=== PATIENT | female | born 1955 | race Caucasian/White ===

== ENCOUNTER 2017-06-21 19:29 | Emergency (ER) | payer MEDICARE, MEDICAID ==
[2017-06-21] MEDS ORDERED: SODIUM CHLORIDE 0.9% 1000ML 1,000 ML IVS ONE (19:53)
[2017-06-21] MEDS ORDERED: PROMETHAZINE HCL INJ 25 MG in SODIUM CHLORIDE 0.9% 50ML 50 ML IVPB ONE (19:53)
[2017-06-21] MEDS ORDERED: PROMETHAZINE HCL INJ 25 MG/ML VIAL ONE (19:56)
[2017-06-21] MEDS ORDERED: SODIUM CHLORIDE 0.9% 50ML 50 ML ONE (19:56)
[2017-06-21] MEDS ORDERED: ACETAMINOPHEN 325 MG TAB PO ONE (20:37)
[2017-06-21] MEDS ORDERED: ALUMINUM & MAGNESIUM HYDROXIDE 30 ML UD PO ONE (20:37)
--- NOTE | 2017-06-21 20:42 | RAD ---
EXAM DESCRIPTION: Abdomen Series CLINICAL HISTORY: n/v/gonzalez/fever COMPARISON: None FINDINGS: Four images of the chest and abdomen were submitted. The lungs are clear. Cardiac silhouette is normal. There is no free air in the abdomen. There is no evidence of bowel obstruction. Moderate stool is in the colon. IMPRESSION: Moderate stool. Electronically signed by: Marco Bass 06/21/2017 8:41 PM NETWORK ARCHITECT MANAGER
[2017-06-21] MEDS ORDERED: POTASSIUM CHLORIDE INJ 40 MEQ 40 MEQ in SODIUM CHLORIDE 0.9% 250ML 250 ML IVPB ONE (21:10)
[2017-06-21] MEDS ORDERED: ASPIRIN TABLET 325 MG TAB PO ONE (21:38)
[2017-06-21] MEDS ORDERED: MAGNESIUM SULFATE PREMIX 2GM 2 GM in PREMIX BAG 1 BAG IVPB ONE (21:41)
[2017-06-21] MEDS ORDERED: MAGNESIUM SULFATE PREMIX 2GM 50 ML IVPB ONE (21:43)
[2017-06-21] MEDS ORDERED: MORPHINE SULFATE INJ 10 MG/ML VIAL IV ONE (21:48)
[2017-06-21] MEDS ORDERED: SODIUM CHLORIDE 0.9% 10 ML VIAL ONE (21:49)
[2017-06-21] MEDS ORDERED: PIPERACILLIN/TAZOBACTAM 3.375 GM in SODIUM CHLORIDE 0.9% 100ML 100 ML IVPB ONE (21:50)
[2017-06-21] MEDS ORDERED: PIPERACILLIN/TAZOBACTAM 3.375 GM VIAL IVPB ONE (22:16)
[2017-06-21] MEDS ORDERED: SODIUM CHLORIDE 0.9% 100ML 100 ML IVPB ONE (22:16)
[2017-06-21] MEDS ORDERED: POTASSIUM CHLORIDE 40mEq 20ML VIAL ONE (22:16)
[2017-06-21] MEDS ORDERED: SODIUM CHLORIDE 0.9% 250ML 250 ML ONE (22:16)
[2017-06-21 22:23] VITALS: O2SAT 94
--- NOTE | 2017-06-21 22:32 | ED.PDOC ---
History of Present Illness - General Chief Complaint: Headache Stated Complaint: lingering SIEGEL, n/v Time Seen by Provider: 06/21/17 19:38 Source: patient Exam Limitations: no limitations - History of Present Illness Initial Comments: the patient's a 61-year-old female presenting to the emergency room secondary to 4 days of a headache, 2 days of nausea and vomiting, and chest pain that lasted a couple of hours approximately 3 days ago. She is found to be febrile here today. Apparently the headaches are frequent occurrence secondary to chronic neck problems. She reports that she believes she had a head CT at [place] in February when she was sick there. She is unsure of the results. The patient is having some moderate epigastric discomfort. No chest pain currently. No shortness of breath. The chest pain that she had 3 days ago lasted 1-2 hours and did radiate to the jaw. It also radiated to between her shoulder blades. She has had this pain before in the past over the last year with varied activities. The patient had a cholecystectomy 3 years ago and at that time according to our records she had a dilated biliary tree from an uncertain cause. There was apparently no hepatitis at that time. Also for her past medical history the patient was in the [facility] for a few weeks back in February of this year for bilateral pneumonia with pulmonary embolus and renal failure. Other past medical history includes type 2 diabetes, hypertension, hypothyroidism, depression, reflux, hypercholesterolemia, cholecystectomy, 2 feet surgeries, tubal ligation and hysterectomy, 3 ear surgeries and several sinus surgeries. She also apparently has long-standing mild hypokalemia and mild hypomagnesemia. The patient has apparently seen Dr. Osborn at [place] before. She has also seen the oil well pumper at [place] before. The patient is not having any altered mental status. No syncope or near syncope. No pain over the temporal arteries. The patient also does report that she had one episode of throwing up a little bit of blood a couple of weeks ago. Timing/Duration: unsure Severity: moderate Improving Factors: nothing Worsening Factors: nothing Associated Symptoms: chest pain, diaphoresis, fever/chills, headaches, loss of appetite, malaise, nausea/vomiting, weakness Allergies/Adverse Reactions: Allergies NO KNOWN ALLERGY Allergy (Verified 06/21/17 19:50) Home Medications: Ambulatory Orders Atenolol 25 mg PO DAILY #0 03/24/13 HYDROcodone 10MG/APAP 325MG [[place] 10/325] 1 ea PO Q4-6H PRN #0 03/24/13 Levothyroxine Sodium [Synthroid] 0.125 mg PO 0700 #0 03/24/13 Lisinopril/Hctz 20-25 mg [Zestoretic 20-25 mg] 1 ea PO DAILY #0 03/24/13 Metformin HCl 500 mg PO BID #0 03/24/13 Pravastatin Sodium 20 mg PO DAILY #0 03/24/13 Raloxifene HCl [Evista] 60 mg PO DAILY #0 03/24/13 Dexlansoprazole [Dexilant] 30 mg PO DAILY 09/08/14 Fluoxetine HCl [Prozac] 60 mg PO BEDTIME 09/08/14 Mirtazapine [Remeron] 30 mg PO BEDTIME 09/08/14 Apixaban [Eliquis] 2.5 mg PO BID 06/21/17 Review of Systems - Review of Systems Constitutional: States: fever, malaise, weakness EENTM: States: no symptoms reported Respiratory: States: no symptoms reported Cardiology: States: chest pain Gastrointestinal/Abdominal: States: abdominal pain, nausea, vomiting Genitourinary: States: no symptoms reported Musculoskeletal: States: back pain, joint pain, neck pain - chronic Skin: States: no symptoms reported Neurological: States: anxiety, headache Endocrine: States: excessive sweating Hematologic/Lymphatic: States: no symptoms reported All other Systems: No Change from Baseline Past Medical History (General) - Patient Medical History Hx Seizures: No Hx Stroke: No Hx Asthma: Yes Hx of COPD: Yes Hx Cardiac Disorders: Yes - hx HI Hx Congestive Heart Failure: No Hx Pacemaker: No Hx Hypertension: Yes Hx Thyroid Disease: Yes Hx Diabetes: Yes - neuropathy Hx Gastroesophageal Reflux: Yes Hx MRSA: No Surgical History: cholecystectomy, Hysterectomy - Vaccination History Hx Tetanus, Diphtheria Vaccination: No Hx Influenza Vaccination: No Hx Pneumococcal Vaccination: No - Social History Hx Tobacco Use: Yes Hx Alcohol Use: No Hx Substance Use: No Hx Physical Abuse: No Hx Emotional Abuse: No Family Medical History - Family History Mother Living Status: Hx Family Cancer: Yes - melanoma Physical Exam - Physical Exam General Appearance: Alert, No apparent distress, Ill Appearing Eye Exam: bilateral normal Ears, Nose, Throat: hearing grossly normal, normal ENT inspection, normal pharynx Neck: full range of motion, supple Respiratory: lungs clear, normal breath sounds, no respiratory distress, no accessory muscle use Cardiovascular/Chest: normal peripheral pulses, regular rate, rhythm, no edema Peripheral Pulses: radial,right: 2+, radial,left: 2+, dorsalis pedis,right: 2+, dorsalis pedis,left: 2+ Gastrointestinal/Abdominal: soft, other - obese. Epigastric discomfort palpation. Rectal Exam: deferred Back Exam: normal inspection, no CVA tenderness, no vertebral tenderness Extremity: normal range of motion, non-tender, normal inspection, no pedal edema , normal capillary refill Neurologic: recharger II-XII nml as tested, alert, normal mood/affect, oriented x 3 Skin Exam: other - the patient is flushed with fever Comments: Vital Signs - 24 hr 06/21/17 06/21/17 06/21/17 19:42 19:54 20:30 Temperature 101.5 F H Pulse Rate Pulse Rate [ 98 H 89 89 left] Respiratory 18 16 18 Rate Blood Pressure 142/65 154/78 [left] O2 Sat by Pulse 92 L 90 L Oximetry 06/21/17 06/21/17 06/21/17 21:30 22:02 22:15 Temperature 101.4 F H Pulse Rate 92 H 92 H Pulse Rate [ 91 H 87 87 left] Respiratory 18 18 20 Rate Blood Pressure 149/69 147/65 114/89 [left] O2 Sat by Pulse 88 L 96 94 L Oximetry Progress - Progress Progress: 06/21/17 22:35 the patient's a 61-year-old female presenting to the emergency room secondary to headache, nausea vomiting, fever and chest pain a few days ago. The patient appears to have hepatitis of uncertain origin. There is elevation in the AST, ALT and bilirubin levels. Additionally she does have a mild elevation of her troponin. She is currently chest pain-free and the EKG appears reassuring at this point. It is possible she may have had a small non- ST elevation myocardial infarction 3 days ago when she had the chest pain. She will need a repeat set of cardiac enzymes to make sure that there is no rise indicating a current silent myocardial infarction. This does seem unlikely. The patient has received a dose of aspirin. I'm avoiding other blood thinning type medication secondary to the fact that the patient is already taking Eliquis. The patient is being transferred for cardiac and GI evaluation. Ultrasound of the right upper quadrant would be warranted, and is unavailable here. CT scan at this point in time is being held in case the patient needs cardiac catheterization first, in order to avoid a double dye load with her recent history of renal failure. the patient is also receiving IV potassium and IV magnesium due to her deficiencies. These will of course need to be rechecked. She does also possibly appear to be mildly hyperthyroid. Transferring for evaluation and treatment of above issues. she believes she had a head CT performed at her last admission at [place]. The results of this may be worth looking up upon her arrival. - Results/Orders Results/Orders: Laboratory Tests 06/21/17 06/21/17 06/21/17 20:25 20:25 20:25 WBC 11.7 H RBC 4.37 Hgb 12.7 Hct 38.3 MCV 87.6 MCH 29.0 MCHC 33.1 RDW 15.1 H Plt Count 254 MPV 7.6 Absolute Neuts (auto) 11.00 H Absolute Lymphs (auto) 0.30 L Absolute Monos (auto) 0.40 Absolute Eos (auto) 0.00 Absolute Basos (auto) 0.00 Neutrophils % 93.3 H Lymphocytes % 2.9 L Monocytes % 3.6 Eosinophils % 0.0 L Basophils % 0.2 PT 14.6 H INR 1.300 PTT (SP) 35.2 Sodium 132 L Potassium 3.2 L Chloride 96 L Carbon Dioxide 26 Anion Gap 13.2 BUN 12 Creatinine 1.03 BUN/Creatinine Ratio 11.7 Random Glucose 137 H Serum Osmolality 266.4 L Lactic Acid Calcium 9.2 Magnesium 1.1 L Total Bilirubin 3.2 H* AST 310 H ALT 211 H Alkaline Phosphatase 45 Creatine Kinase 73 CK-MB (CK-2) 4.2 CK-MB (CK-2) % Not Reportable Troponin I 0.38 H* Serum Total Protein 7.0 Albumin 3.6 Globulin 3.4 Albumin/Globulin Ratio 1.1 Amylase 46 Lipase 15 L TSH 0.10 L 06/21/17 20:25 WBC RBC Hgb Hct MCV MCH MCHC RDW Plt Count MPV Absolute Neuts (auto) Absolute Lymphs (auto) Absolute Monos (auto) Absolute Eos (auto) Absolute Basos (auto) Neutrophils % Lymphocytes % Monocytes % Eosinophils % Basophils % PT INR PTT (SP) Sodium Potassium Chloride Carbon Dioxide Anion Gap BUN Creatinine BUN/Creatinine Ratio Random Glucose Serum Osmolality Lactic Acid 2.0 Calcium Magnesium Total Bilirubin AST ALT Alkaline Phosphatase Creatine Kinase CK-MB (CK-2) CK-MB (CK-2) % Troponin I Serum Total Protein Albumin Globulin Albumin/Globulin Ratio Amylase Lipase TSH acute abdominal series showsmoderate constipation. EKG shows normal sinus rhythm at 93 bpm. There is a [address] segment depression in lead 2 only. Otherwise no suspicious ST segment changes concerning for acute ischemia. Normal axis. Departure - Departure Clinical Impression: Hepatitis, Elevated troponin Disposition: Transfer to Hospital Referrals: Fritz Raya MD [Primary Care Provider] - 1-2 Weeks Home Medications: Ambulatory Orders Atenolol 25 mg PO DAILY #0 03/24/13 HYDROcodone 10MG/APAP 325MG [[place] 10/325] 1 ea PO Q4-6H PRN #0 03/24/13 Levothyroxine Sodium [Synthroid] 0.125 mg PO 0700 #0 03/24/13 Lisinopril/Hctz 20-25 mg [Zestoretic 20-25 mg] 1 ea PO DAILY #0 03/24/13 Metformin HCl 500 mg PO BID #0 03/24/13 Pravastatin Sodium 20 mg PO DAILY #0 03/24/13 Raloxifene HCl [Evista] 60 mg PO DAILY #0 03/24/13 Dexlansoprazole [Dexilant] 30 mg PO DAILY 09/08/14 Fluoxetine HCl [Prozac] 60 mg PO BEDTIME 09/08/14 Mirtazapine [Remeron] 30 mg PO BEDTIME 09/08/14 Apixaban [Eliquis] 2.5 mg PO BID 06/21/17 Transfer to Outside Facility - Transfer Information Accepting Provider:: dr chay salazar Accepting Facility: [facility] Reason for Transfer: required specialist not available
[2017-06-21 23:24] VITALS: BP 113/53; TEMP 98.7
== END 2017-06-21 23:47 | disposition short-term general hospital (02) ==
LOC: ER 19:29
DX: K75.9 Inflammatory liver disease, unspecified (principal); R79.89 Other specified abnormal findings of blood chemistry; J44.9 Chronic obstructive pulmonary disease, unspecified; I25.2 Old myocardial infarction; I10 Essential (primary) hypertension; E11.40 Type 2 diabetes mellitus with diabetic neuropathy, unspecified; Z87.891 Personal history of nicotine dependence; Z79.899 Other long term (current) drug therapy; Z79.01 Long term (current) use of anticoagulants
CPT/HCPCS: 36415; 74020; 80053; 81001; 82150; 82550; 82553; 83605; 83690; 83735; 84443; 84484; 85025; 85610; 85730; 87502; 93005; A4216; J2270; J2543; J2550; J3475; J3480; J7030; J7050